=== PATIENT | female | born 1960 | race Caucasian/White ===

== ENCOUNTER 2019-07-30 13:43 | Emergency (ER) | payer BC, MEDICARE ==
[2019-07-30] MEDS ORDERED: TORAdol 30 mg Injection IM ONE (14:02)
--- NOTE | 2019-07-30 14:06 | ERPHSYRPT ---
- History of Present Illness Time Seen by Provider: 07/30/19 13:50 Source: patient Exam Limitations: no limitations Physician History: Left sided pain from the left shoulder, left elbow, left leg and left knee pain after fall in the closet 4 hours ago. Occurred: this morning (4 hours ago) Reason for Fall: lost balance, fell from standing pos Injuries/Pain Location: upper extremity (left shoulder), back, lower extremity ( left side) Loss of Consciousness: no loss of consciousness Quality: aching, sharpness, throbbing Severity of Pain-Max: severe Severity of Pain-Current: severe Modifying Factors: Improves With: immobilization. Worsens With: movement Associated Symptoms (Fall): extremity injury, trouble walking, No abdominal pain , No back pain, No confusion, No chest pain, No dizziness, No headache, No lightheadedness, No muscle spasms, No nausea, No neck pain, No ringing in ears, No seizures, No shortness of breath, No slurred speech, No vomiting, No vision changes Allergies/Adverse Reactions: levofloxacin [From Levaquin] Allergy (Severe, Verified 07/30/19 14:04) itch morphine Allergy (Severe, Verified 02/09/19 16:13) Itching nalbuphine HCl [From Nubain] Allergy (Severe, Verified 02/09/19 16:13) Itching piperacillin [From Zosyn] Allergy (Intermediate, Verified 02/09/19 16:13) Hives tazobactam [From Zosyn] Allergy (Intermediate, Verified 02/09/19 16:13) Hives metformin Allergy (Verified 02/09/19 16:13) Home Medications: Albuterol Sulfate [Proair Hfa] 8.5 gm IH BID 02/09/19 [History] Armodafinil 250 mg PO DAILY 02/09/19 [History] Calcium Citrate/Vitamin D3 [Calcitrate + Vit D Caplet] 1 each PO BID 02/09/19 [ History] Cyanocobalamin (Vitamin B-12) [B-12] 1 ml SQ WEEKLY 02/09/19 [History] Diclofenac Sodium Gel [Voltaren GEL] 100 gm TP UD 02/09/19 [History] Diphenoxylate HCl/Atropine [Lomotil] 1 udtab PO QID PRN 02/09/19 [History] Ergocalciferol (Vitamin D2) [Vitamin D] 50,000 unit PO UD 02/09/19 [History] Esomeprazole Magnesium [Nexium] 40 mg PO BID 02/09/19 [History] Estradiol 1 mg [Estrace 1 mg] 0.5 mg PO UD 02/09/19 [History] Eszopiclone [Lunesta] 1 mg PO HS 02/09/19 [History] Gabapentin Enacarbil [Horizant] 1,200 mg PO HS 02/09/19 [History] Insulin Lispro [Humalog] 100 unit SQ UD 02/09/19 [History] L.acidoph,Paracasei, B.lactis [Probiotic] 1 each PO TID 02/09/19 [History] Levothyroxine Sodium 200 mcg PO DAILY 02/09/19 [History] Levothyroxine Sodium 25 Mcg [Synthroid 25 Mcg] 25 mcg PO DAILY 02/09/19 [ History] Loratadine 10 mg [Claritin 10 mg] 10 mg PO DAILY 02/09/19 [History] Magnesium Oxide 400 mg [Mag-Ox 400] 400 mg PO BID 02/09/19 [History] Midodrine HCl 2.5 mg PO BID 02/09/19 [History] Mirabegron [Myrbetriq] 50 mg PO DAILY 02/09/19 [History] Oxycodone HCl [Oxycontin] 15 mg PO BID 02/09/19 [History] Potassium Chloride 10 Meq Tab* [Klor Con 10 MEQ] 10 meq PO BID 02/09/19 [ History] Rifaximin [Xifaxan] 550 mg PO BID 02/09/19 [History] Sertraline HCl 150 mg PO HS 02/09/19 [History] Sucralfate [Carafate] 1 gm PO BID 02/09/19 [History] Sumatriptan Succinate 25 mg PO BID PRN 02/09/19 [History] Trospium Chloride [Sanctura] 20 mg PO HS 02/09/19 [History] Estradiol 10 mcg VG UD 02/10/19 [History] Pentosan Polysulfate Sodium [Elmiron] 100 mg PO TID 07/27/19 [History] Vitamin D3/Vitamin K2 (Mk4) [K2 Plus D3 Tablet] 1 each PO DAILY 07/27/19 [ History] Hx Tetanus, Diphtheria Vaccination/Date Given: Yes Hx Influenza Vaccination/Date Given: Yes Hx Pneumococcal Vaccination/Date Given: No - Review of Systems Constitutional: No Fever, No Chills, No Fatigue Eyes: No Eye Pain, No Vision Changes Ears, Nose, & Throat: No Ear Pain, No Nose Pain, No Epistaxis Respiratory: No Cough, No Dyspnea Cardiac: No Chest Pain, No Edema, No Syncope Abdominal/Gastrointestinal: No Abdominal Pain, No Nausea, No Vomiting, No Diarrhea Genitourinary Symptoms: No Dysuria, No Hematuria, No Flank Pain Musculoskeletal: Joint Pain (left knee, site of a replacement), No Back Pain, No Neck Pain Skin: No Rash Neurological: No Dizziness, No Focal Weakness, No Headache, No Parasthesia, No Sensory Changes, No Tremors Psychological: No Symptoms Endocrine: No Symptoms Hematologic/Lymphatic: No Easy Bleeding, No Easy Bruising All Other Systems: Reviewed and Negative - Past Medical History Pertinent Past Medical History: Yes Neurological History: Peripheral Neuropathy ENT History: Glaucoma Cardiac History: No Pertinent History Respiratory History: No Pertinent History Endocrine Medical History: Diabetes Type II, Hypothyroidism Musculoskeletal History: Arthritis GI Medical History: GERD History: No Pertinent History Psycho-Social History: Anxiety Female Reproductive Disorders: Menstrual Problems Other Medical History: hx of cyst on ovaries prior to hysterectomy - Past Surgical History Past Surgical History: Yes Neuro Surgical History: No Pertinent History Cardiac: No Pertinent History Respiratory: No Pertinent History Gastrointestinal: Cholecystectomy, Other Genitourinary: No Pertinent History Musculoskeletal: Joint Replacement, Orthopedic Surgery Female Surgical History: Hysterectomy Other Surgical History: lt fx ankle repair,carpel tunnel, d&c, gastric bypass, tummy tuck, bilateral knees replaceed, left elbow - Social History Smoking Status: Never smoker Exposure to second hand smoke: No Alcohol Use: None Drug Use: none Patient Lives Alone: No Significant Family History: heart disease, diabetes, hypertension - Nursing Vital Signs Nursing Vital Signs: Initial Vital Signs Temperature 100.4 F 07/30/19 13:54 Pulse Rate 85 07/30/19 13:54 Respiratory Rate 20 07/30/19 13:54 Blood Pressure 110/69 07/30/19 13:54 O2 Sat by Pulse Oximetry 97 07/30/19 13:54 Pain Scale Pain Intensity 10 - Vernell Coma Score Best Eye Response ([place]): (4) open spontaneously Best Verbal Response ([place]): (5) oriented Best Motor Response ([place]): (6) obeys commands [place] Total: 15 - Physical Exam General Appearance: no apparent distress, alert Head Injury: no evidence of injury, No Diaz's Sign, No contusions, No lacerations Eye Exam: PERRL/EOMI ENT Exam: airway nml, evidence of ENT injury, hearing grossly normal, No clotted nasal blood Neck Exam: supple, trachea midline, full range of motion, normal alignment, normal inspection, No focal neuro deficit, No limited range of motion, No tenderness Respiratory/Chest Exam: normal breath sounds, No chest tenderness, No respiratory distress, No rales, No rhonchi, No wheezing, No splinting Cardiovascular Exam: normal heart sounds, regular rate/rhythm Gastrointestinal Exam: soft, No tenderness, No distention, No guarding, No ecchymosis, No pulsatile mass, No rebound Back Exam: normal inspection, No CVA tenderness, No vertebral tenderness Extremity Exam: normal inspection, normal range of motion, capillary refill <3 sec, pelvis stable, bony point tenderness (left shoulder, elbow; left hip and knee; left lower leg), hip tenderness (left side only), pain with movement ( left hip and knee; left shoulder and elbow), No deformities, No motor deficit, No sensory deficit Peripheral Pulses: dorsalis-pedis (R): 2+, dorsalis-pedis (L): 2+ Neurologic Exam: alert, oriented x 3, cooperative, trauma counsellor II-XII nml as tested, sensation nml, No motor deficits Skin Exam: normal color, warm, dry SpO2 Interpretation: normal O2 Delivery: Room Air - Radiology Exams Left Shoulder X-ray Interpretation: Reviewed by me, No Fracture, Nml Alignment, Other (per radiologist's interpretation:review the left shoulder again demonstrates moderate degenerative arthropathy and mild multilevel thoracic degenerative spondylosis. No new/acute findings) Left Elbow X-ray Interpretation: Reviewed by me, Other (per radiologist interpretation: 3 views of the left elbow unchanged again demonstrating tiny medial/lateral epicondyles spurring and tiny heterotopic ossification projecting over the radial capitellum articulation. No new/acute findings.) L-Spine X-ray Interpretation: Reviewed by Oly croft (per radiologist interpretation: 3 views the lumbar spine unchanged again demonstrating mild 4/moderate multilevel degenerative spondylosis, minimal grade 1 L4 spondylolisthesis, mild curvature scoliosis, bilateral hip degenerative arthropathy, and pelvic phleboliths. No new/acute findings.) Left Hip X-ray Interpretation: Reviewed by Oly croft (pper radiologist interpretation: 2 views of left hip again demonstrates mild degenerative changes with superior acetabular heterotopic ossification and scattered vascular calcifications including pelvic phleboliths. No new/acute findings.) Left Knee X-ray Interpretation: Reviewed by Oly croft (per radiologist interpretation: 3 views of the left knee unchanged again hamstring total knee arthroplasty with an intact prosthesis/articulation and surrounding heterotopic ossification. Also scattered vascular calcifications. No new/acute findings.) Left Lower Leg X-ray Interpretation: Reviewed by Oly croft (per the radiologist's interpretation: 2 views of the left lower leg again demonstrates total knee arthroplasty and scattered vascular calcifications. New Heel spurs. No other bony, articular, or soft tissue abnormality. ) Ordered Tests: Active Orders 24 hr Category Date Time Status ELBOW (MINIMUM 3 VIEWS) Stat Exams 07/30/19 14:19 Completed HIP UNI (2V) INCL PEL IF DONE Stat Exams 07/30/19 14:03 Completed KNEE (3 VIEWS) Stat Exams 07/30/19 14:04 Completed LOWER LEG Stat Exams 07/30/19 14:05 Completed LUMBAR LIMITED (2 OR 3 VIEWS) Stat Exams 07/30/19 14:03 Completed SHOULDER Stat Exams 07/30/19 14:03 Completed Medication Summary Discontinued Medications Generic Name Dose Route Start Last Admin Trade Name Freq PRN Reason Stop Dose Admin Ketorolac Tromethamine 60 mg 07/30/19 14:02 07/30/19 14:16 Toradol 30 Mg Injection IM 07/30/19 14:03 60 mg STAT ONE Administration Ketorolac Tromethamine Confirm 07/30/19 14:15 Toradol 30 Mg Injection Administered 07/30/19 14:16 Dose 60 mg .ROUTE .STK-MED ONE - Progress Progress: improved Progress Note: 07/30/19 15:54 Pain is improving. No neurologic deficits. Counseled pt/family regarding: diagnosis, need for follow-up, rad results - Departure Departure Disposition: Home, In-patient Admission, Extended Care Facility, Group Home/ [facility] Clinical Impression: Contusion of left elbow, initial encounter, Pain in left lower leg Sprain of left shoulder Qualifiers: Encounter type: initial encounter Shoulder sprain type: unspecified sprain Qualified Code(s): S43.402A - Unspecified sprain of left shoulder joint, initial encounter Contusion of left hip Qualifiers: Encounter type: initial encounter Qualified Code(s): S70.02XA - Contusion of left hip, initial encounter Lumbosacral strain Qualifiers: Encounter type: initial encounter Qualified Code(s): S39.012A - Strain of muscle, fascia and tendon of lower back, initial encounter Condition: Good Critical Care Time: No Referrals: ESEQUIEL MTZ MD [Primary Care Provider] - 07/31/19 Instructions: Lumbar Muscle Strain (DC), Contusion (DC), Preventing Falls, Shoulder Sprain (DC), Knee Pain (DC) Additional Instructions: Your x-rays of your left shoulder, left elbow, low back, left hip, left knee, and left lower leg were negative for any acute fractures, dislocations or any new abnormalities. Followup with your physician to continue evaluating her pain and determine the need for referral for therapy or other further imaging or any other specialist evaluation such as an orthopedic surgeon. Return immediately back to the emergency room if any worsening pain, loss of function, loss of sensation, new fevers, new abdominal pain, any dizziness, new weakness or any other concerning signs or symptoms that were not present at today's emergency department visit for immediate reevaluation in the emergency department. Prescriptions: Etodolac 400 mg [Lodine 400 mg] 400 mg PO BID PRN PRN #20 tablet PRN Reason: Pain
[2019-07-30] MEDS ORDERED: TORAdol 30 mg Injection ONE (14:15)
--- NOTE | 2019-07-30 15:19 | XRAY ---
Indication: Pain following fall. Comparison: August 19, 2013. 3 views of the lumbar spine unchanged again demonstrating mild/moderate multilevel degenerative spondylosis, minimal grade 1 L4 spondylolisthesis, mild double curvature scoliosis, bilateral hip degenerative arthropathy, and pelvic phleboliths. No new/acute findings.
--- NOTE | 2019-07-30 15:21 | XRAY ---
Indication: Pain following fall. Comparison: AP pelvis November 23, 2011. 2 views of the left hip again demonstrates mild degenerative changes with superior acetabular heterotopic ossification and scattered vascular calcifications including pelvic phleboliths. No new/acute findings.
--- NOTE | 2019-07-30 15:23 | XRAY ---
Indication: Pain following fall. Comparison: December 24, 2007. 3 views of the left shoulder again demonstrates moderate AC degenerative arthropathy and mild multilevel thoracic degenerative spondylosis. No new/acute findings.
--- NOTE | 2019-07-30 15:25 | XRAY ---
Indication: Pain following fall. Comparison: April 21, 2015. 3 views of the left elbow unchanged again demonstrating tiny medial/lateral epicondyle spurring and tiny heterotopic ossification projecting over the radial capitellum articulation. No new/acute findings.
--- NOTE | 2019-07-30 15:27 | XRAY ---
Indication: Pain following fall. Comparison: December 18, 2016. 3 views of the of the left knee unchanged again demonstrating total knee arthroplasty with intact prosthesis/articulation and surrounding heterotopic ossifications. Also scattered vascular calcifications. No new/acute findings.
--- NOTE | 2019-07-30 15:29 | XRAY ---
Indication: Pain following fall. Comparison: August 16, 2014. 2 views of the left lower leg again demonstrates total knee arthroplasty and scattered vascular calcifications. New heel spurs. No other bony, articular, or soft tissue abnormality.
[2019-07-30 16:25] VITALS: BP 112/74; PULSE 84; O2SAT 94
== END 2019-07-30 16:23 | disposition home or self-care (01) ==
LOC: ED 13:43
DX: S50.02XA Contusion of left elbow, initial encounter (principal); S80.12XA Contusion of left lower leg, initial encounter; S70.02XA Contusion of left hip, initial encounter; W18.39XA Other fall on same level, initial encounter; S43.402A Unspecified sprain of left shoulder joint, initial encounter; S39.012A Strain of muscle, fascia and tendon of lower back, initial encounter; Z79.899 Other long term (current) drug therapy; Z79.891 Long term (current) use of opiate analgesic; Z79.4 Long term (current) use of insulin; E03.9 Hypothyroidism, unspecified; E00.9 Congenital iodine-deficiency syndrome, unspecified; H40.9 Unspecified glaucoma
CPT/HCPCS: 72100; 73030; 73080; 73502; 73562; 73590; 96372; 99284; J1885

== ENCOUNTER 2021-05-20 20:01 | Emergency (ER) | payer OTHER, MEDICARE ==
--- NOTE | 2021-05-20 20:06 | ERPHSYRPT ---
- History of Present Illness Time Seen by Provider: 05/20/21 20:06 Source: patient Exam Limitations: no limitations Physician History: This is a 60-year-old white female who has had a right upper extremity midline venous catheter for once a week and meropenem antibiotic therapy. She was discharged from the hospital approximately 1 month ago. However, approximately 2 weeks ago the venous catheter was accidentally pulled out a ways. It has not been used since that time. The patient wants the line out since its not being used. Her next infusion of meropenem is 05/23/2021. Patient has noticed no redness or pain in the right upper extremity venous catheter site. Timing/Duration: today Severity: mild Associated Symptoms: denies symptoms Allergies/Adverse Reactions: levofloxacin [From Levaquin] Allergy (Severe, Verified 05/09/21 11:05) itch morphine Allergy (Severe, Verified 05/09/21 11:05) Itching nalbuphine HCl [From Nubain] Allergy (Severe, Verified 05/09/21 11:05) Itching piperacillin [From Zosyn] Allergy (Intermediate, Verified 05/09/21 11:05) Hives tazobactam [From Zosyn] Allergy (Intermediate, Verified 05/09/21 11:05) Hives metformin Allergy (Verified 05/09/21 11:05) Home Medications: Ergocalciferol (Vitamin D2) [Vitamin D] 50,000 unit PO UD 02/09/19 [History] Magnesium Oxide 400 mg [Mag-Ox 400] 400 mg PO DAILY 02/09/19 [History] Mirabegron [Myrbetriq] 50 mg PO DAILY 02/09/19 [History] Oxycodone HCl [Oxycontin] 10 mg PO BID 02/09/19 [History] Potassium Chloride 10 Meq Tab* [Klor Con 10 MEQ] 10 meq PO BID 02/09/19 [History] estradioL [Estradiol] 10 mcg VG UD 02/10/19 [History] Ascorbic Acid 500 mg [Vitamin C 500 MG] 500 mg PO DAILY 05/16/21 [History] Azelastine Nasal [Astelin Nasal] 1 ml INTRANASAL BID 05/16/21 [History] Buprenorphine HCl [Belbuca] 600 mcg BC BID 05/16/21 [History] Diclofenac Sodium Gel [Voltaren GEL] 100 gm TP QID PRN PRN 05/16/21 [History] Escitalopram Oxalate [Lexapro] 20 mg PO DAILY 05/16/21 [History] Gabapentin Enacarbil [Horizant] 600 mg PO DAILY 05/16/21 [History] Loperamide HCl 2 mg [Imodium 2 mg] 2 mg PO QID PRN PRN 05/16/21 [History] Ondansetron ODT 4 MG [Zofran Odt 4 mg] 4 mg PO Q6H PRN PRN 05/16/21 [History] Pramipexole Di-HCl [Pramipexole Dihydrochloride] 0.125 mg PO BID 05/16/21 [History] Pramipexole Di-HCl [Pramipexole ER] 0.375 mg PO HS 05/16/21 [History] Hx Tetanus, Diphtheria Vaccination/Date Given: Yes Hx Influenza Vaccination/Date Given: Yes Hx Pneumococcal Vaccination/Date Given: No Travel Risk - International Travel Have you traveled outside of the country in past 3 weeks: No - Coronavirus Screening Are you exhibiting any of the following symptoms?: No Close contact with a COVID-19 positive Pt in past 14-21 Days: No - Review of Systems Constitutional: No Symptoms Eyes: No Symptoms Ears, Nose, & Throat: No Symptoms Respiratory: No Symptoms Cardiac: No Symptoms Abdominal/Gastrointestinal: No Symptoms Genitourinary Symptoms: No Symptoms Musculoskeletal: No Symptoms Skin: No Symptoms Neurological: No Symptoms Psychological: No Symptoms Endocrine: No Symptoms Hematologic/Lymphatic: No Symptoms Immunological/Allergic: No Symptoms All Other Systems: Reviewed and Negative - Past Medical History Pertinent Past Medical History: Yes Neurological History: Peripheral Neuropathy ENT History: Glaucoma Cardiac History: No Pertinent History Respiratory History: No Pertinent History Endocrine Medical History: Adrenal Insufficiency, Diabetes Type II, Other Musculoskeletal History: Osteoarthritis GI Medical History: GERD History: Other Psycho-Social History: Anxiety Female Reproductive Disorders: Menstrual Problems Other Medical History: PT NOTES SHE WAS IN THE HOSPITAL FOR 100+ DUE TO FOOD RETENTION, SHE NOTES PUSHING THE FOOD THROUGH DAMAGED HER GASTRIC BYPASS. SHE HAD TO HAVE ADDITIONAL SURGERIES. SHE RECENTLY FINISHED WOUND CARE. SHE HAD A WOUND VAC IN THE HOSPTIAL. SHE NOTES WOUND IS ALL HEALED . SHE HAS HAD PARTIAL LIVER REMOVAL. PT HAS HAD HER STOMACH REMOVED. recurrent urinary tract infections - Past Surgical History Past Surgical History: Yes Neuro Surgical History: No Pertinent History Cardiac: No Pertinent History Respiratory: No Pertinent History Gastrointestinal: Cholecystectomy, Other Genitourinary: No Pertinent History Musculoskeletal: Joint Replacement, Orthopedic Surgery Female Surgical History: Hysterectomy Other Surgical History: lt fx ankle repair,carpel tunnel, d&c, gastric bypass, tummy tuck, bilateral knees replaceed, left elbow. glaucoma surgery on both eyes. 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 - Social History Smoking Status: Never smoker Exposure to second hand smoke: No Alcohol Use: None Drug Use: none Patient Lives Alone: No Significant Family History: heart disease, diabetes, hypertension - Nursing Vital Signs Nursing Vital Signs: Initial Vital Signs Temperature 98.9 F 05/20/21 20:03 Pulse Rate 74 05/20/21 20:03 Respiratory Rate 18 05/20/21 20:03 Blood Pressure 144/73 05/20/21 20:03 O2 Sat by Pulse Oximetry 98 05/20/21 20:03 Pain Scale Pain Intensity 1 - Physical Exam General Appearance: no apparent distress, alert, anxiety Eye Exam: PERRL/EOMI, eyes nml inspection Ears, Nose, Throat Exam: normal ENT inspection, moist mucous membranes Neck Exam: normal inspection, non-tender, supple, full range of motion Respiratory Exam: No chest tenderness, No respiratory distress, No airway intact Gastrointestinal/Abdomen Exam: No tenderness Pelvic Exam: not done Rectal Exam: not done Back Exam: normal inspection, normal range of motion, No CVA tenderness, No vertebral tenderness Extremity Exam: normal inspection, normal range of motion, pelvis stable Neurologic Exam: alert, oriented x 3, cooperative, superintendent drilling and production II-XII nml as tested, normal mood/affect, nml cerebellar function, nml station & gait, sensation nml Skin Exam: normal color, warm, dry, other (Right antecubital catheter site shows no evidence of infection or drainage. The venous catheter line has been pulled out significantly.) Lymphatic Exam: No adenopathy SpO2 Interpretation: normal O2 Delivery: Room Air - Course Nursing assessment & vital signs reviewed: Yes - Progress Progress: improved Counseled pt/family regarding: diagnosis - Departure Departure Disposition: Home Clinical Impression: PICC (peripherally inserted central catheter) removal Condition: Stable Critical Care Time: No Referrals: ESEQUIEL MTZ MD [Primary Care Provider] - Additional Instructions: Keep site clean with soap and water daily. Do not apply lotions ointments or creams to site. Notify infusion clinic on 05/22/2021 to obtain further instructions
[2021-05-20 20:38] VITALS: PULSE 74; O2SAT 98
[2021-05-20 21:04] VITALS: BP 124/64
== END 2021-05-20 21:04 | disposition home or self-care (01) ==
LOC: ED 20:01
DX: Z45.2 Encounter for adjustment and management of vascular access device (principal); E11.9 Type 2 diabetes mellitus without complications
CPT/HCPCS: 99283

== ENCOUNTER 2023-04-18 12:56 | Emergency (ER) | payer MEDICARE, BC ==
[2023-04-18 13:07] VITALS: BP 139/89; PULSE 70; O2SAT 96
[2023-04-18] MEDS ORDERED: BENADRYL 50 MG/ML IM ONE (13:34)
[2023-04-18] MEDS ORDERED: solu-MEDROL 125 MG, Sterile H2O 10 ml 2 ML IM ONE ×2 (13:34)
[2023-04-18] MEDS ORDERED: Pepcid 20 MG PO ONE (13:34)
[2023-04-18] MEDS ORDERED: Sterile H2O 10 ml IJ ONE (13:43)
[2023-04-18] MEDS ORDERED: BENADRYL 50 MG/ML ONE (13:43)
[2023-04-18] MEDS ORDERED: Pepcid 20 MG ONE (13:43)
[2023-04-18] MEDS ORDERED: solu-MEDROL ONE (13:43)
--- NOTE | 2023-04-18 14:16 | ERPHSYRPT ---
- History of Present Illness Time Seen by Provider: 04/18/23 13:04 Source: patient Exam Limitations: no limitations Patient Subjective Stated Complaint: pt here for welts and itching for an 1 1/2 now, no new meds. denies any sob, or dificulty swallowing Triage Nursing Assessment: pt alert, resp easy, skin w/d/p,itching, skin w/d/p, has raised areas on skin Physician History: 62 years old female presented to the ER with chief complaint of rash on the back, legs since yesterday with moderate itching and burning sensation. There are scattered in different areas. No vesicles. No fever or chills reported. No difficulty breathing or swallowing. No tongue swelling. Timing/Duration: yesterday, gradual onset, worse Quality: itchy Severity: moderate Location: torso, extremities Possible Causes: no cause identified Associated Symptoms: rash Allergies/Adverse Reactions: levofloxacin [From Levaquin] Allergy (Severe, Verified 04/18/23 13:04) itch morphine Allergy (Severe, Verified 04/18/23 13:04) Itching nalbuphine HCl [From Nubain] Allergy (Severe, Verified 04/18/23 13:04) Itching piperacillin [From Zosyn] Allergy (Intermediate, Verified 04/18/23 13:04) Hives tazobactam [From Zosyn] Allergy (Intermediate, Verified 04/18/23 13:04) Hives metformin Allergy (Verified 04/18/23 13:04) Home Medications: Ergocalciferol (Vitamin D2) [Vitamin D] 50,000 unit PO UD 02/09/19 [History] Magnesium Oxide 400 mg [Mag-Ox 400] 400 mg PO DAILY 02/09/19 [History] Mirabegron [Myrbetriq] 50 mg PO DAILY 02/09/19 [History] Oxycodone HCl [Oxycontin] 10 mg PO BID 02/09/19 [History] Potassium Chloride Tab* [Klor Con 10 MEQ] 10 meq PO BID 02/09/19 [History] estradioL [Estradiol] 10 mcg VG UD 02/10/19 [History] Ascorbic Acid 500 mg [Vitamin C 500 MG] 500 mg PO DAILY 05/16/21 [History] Azelastine Nasal [Astelin Nasal] 1 ml INTRANASAL BID 05/16/21 [History] Buprenorphine HCl [Belbuca] 600 mcg BC BID 05/16/21 [History] Diclofenac Sodium Gel [Voltaren GEL] 100 gm TP QID PRN PRN 05/16/21 [ History] Escitalopram Oxalate [Lexapro] 20 mg PO DAILY 05/16/21 [History] Gabapentin Enacarbil [Horizant] 600 mg PO DAILY 05/16/21 [History] Loperamide HCl 2 mg [Imodium 2 mg] 2 mg PO QID PRN PRN 05/16/21 [History] Ondansetron ODT 4 MG [Zofran Odt 4 mg] 4 mg PO Q6H PRN PRN 05/16/21 [History] Pramipexole Di-HCl [Pramipexole Dihydrochloride] 0.125 mg PO BID 05/16/21 [History] Pramipexole Di-HCl [Pramipexole ER] 0.375 mg PO HS 05/16/21 [History] Hx Tetanus, Diphtheria Vaccination/Date Given: Yes Hx Influenza Vaccination/Date Given: Yes Hx Pneumococcal Vaccination/Date Given: No Immunizations Up to Date: Yes Travel Risk - International Travel Have you traveled outside of the country in past 3 weeks: No - Coronavirus Screening Are you exhibiting any of the following symptoms?: No - Vaccine Status Have you recieved a Covid-19 vaccination: Yes [employer] [place]: Moderna - Vaccination Dates Date of 2cond Vaccination (if applicable): 2020 - Review of Systems Constitutional: No Symptoms Eyes: No Symptoms Ears, Nose, & Throat: No Symptoms Respiratory: No Symptoms Cardiac: No Symptoms Musculoskeletal: No Symptoms Skin: Rash, Skin Lesions Neurological: No Symptoms Psychological: No Symptoms - Past Medical History Pertinent Past Medical History: Yes Neurological History: Peripheral Neuropathy ENT History: Glaucoma Cardiac History: No Pertinent History Respiratory History: No Pertinent History Endocrine Medical History: Adrenal Insufficiency, Diabetes Type II, Other Musculoskeletal History: Osteoarthritis GI Medical History: GERD History: Other Psycho-Social History: Anxiety Female Reproductive Disorders: Menstrual Problems Other Medical History: PT NOTES SHE WAS IN THE HOSPITAL FOR 100+ DUE TO FOOD RETENTION, SHE NOTES PUSHING THE FOOD THROUGH DAMAGED HER GASTRIC BYPASS. SHE HAD TO HAVE ADDITIONAL SURGERIES. SHE RECENTLY FINISHED WOUND CARE. SHE HAD A WOUND VAC IN THE HOSPTIAL. SHE NOTES WOUND IS ALL HEALED . SHE HAS HAD PARTIAL LIVER REMOVAL. PT HAS HAD HER STOMACH REMOVED. recurrent urinary tract infections - Past Surgical History Past Surgical History: Yes Neuro Surgical History: No Pertinent History Cardiac: No Pertinent History Respiratory: No Pertinent History Gastrointestinal: Cholecystectomy, Other Genitourinary: No Pertinent History Musculoskeletal: Joint Replacement, Orthopedic Surgery Female Surgical History: Hysterectomy Other Surgical History: lt fx ankle repair,carpel tunnel, d&c, gastric bypass, tummy tuck, bilateral knees replaceed, left elbow. glaucoma surgery on both eyes. 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 - Social History Smoking Status: Never smoker Exposure to second hand smoke: No Alcohol Use: None Drug Use: none Patient Lives Alone: No Significant Family History: heart disease, diabetes, hypertension - Nursing Vital Signs Nursing Vital Signs: Initial Vital Signs Temperature 97.0 F 04/18/23 13:06 Pulse Rate 70 04/18/23 13:06 Respiratory Rate 18 04/18/23 13:06 Blood Pressure 139/89 04/18/23 13:06 O2 Sat by Pulse Oximetry 97 04/18/23 13:06 Pain Scale Pain Intensity 0 - Physical Exam General Appearance: no apparent distress, alert Eye Exam: PERRL/EOMI Ears, Nose, Throat Exam: normal ENT inspection, TMs normal, pharynx normal, moist mucous membranes Neck Exam: normal inspection, non-tender, supple, full range of motion Respiratory Exam: normal breath sounds, lungs clear Cardiovascular Exam: regular rate/rhythm, normal heart sounds Back Exam: normal inspection Extremity Exam: normal inspection, normal range of motion Neurologic Exam: alert, oriented x 3, cooperative Skin Exam: rash (Distinct raised rash on the back, thighs, no vesicles, blanchable, minimal tenderness. No discharge.) SpO2 Interpretation: normal SpO2: 96 O2 Delivery: Room Air Ordered Tests: Medication Summary Discontinued Medications Generic Name Dose Route Start Last Admin Trade Name Freq PRN Reason Stop Dose Admin Methylprednisolone Sodium 0 mg 04/18/23 13:34 04/18/23 13:45 Succinate 125 mg/ Sterile IM 04/18/23 13:35 125 mg Water 2 ml STAT ONE Administration Diphenhydramine HCl 50 mg 04/18/23 13:34 04/18/23 13:46 Diphenhydramine Hcl 50 Mg/Ml Vial IM 04/18/23 13:35 50 mg STAT ONE Administration Diphenhydramine HCl Confirm 04/18/23 13:43 Diphenhydramine Hcl 50 Mg/Ml Vial Administered 04/18/23 13:44 Dose 50 mg .ROUTE .STK-MED ONE Famotidine 40 mg 04/18/23 13:34 04/18/23 13:44 Famotidine 20 Mg Tablet PO 04/18/23 13:35 40 mg STAT ONE Administration Famotidine Confirm 04/18/23 13:43 Famotidine 20 Mg Tablet Administered 04/18/23 13:44 Dose 40 mg .ROUTE .STK-MED ONE Methylprednisolone Sodium Succinate Confirm 04/18/23 13:43 Methylprednis Sod Succ 125 Mg/2 Ml Vial Administered 04/18/23 13:44 Dose 125 mg .ROUTE .STK-MED ONE Sterile Water Confirm 04/18/23 13:43 Water For Injection,Sterile 10 Ml Vial Administered 04/18/23 13:44 Dose 10 ml IJ .STK-MED ONE - Progress Progress Note: 04/18/23 14:11 62 years old female presented to the ER with chief complaint of rash on the back, legs since yesterday with moderate itching and burning sensation. There are scattered in different areas. No vesicles. No fever or chills reported. No difficulty breathing or swallowing. No tongue swelling. Denies any new medication start, contact with any new allergen. On exam it seems like distant areas with questionable bite leung in the center. Could be possible insect bite versus dermatitis. She is given a shot of steroid, Benadryl and will continue with Benadryl and Pepcid to go home and topical steroid. Counseled on glucose monitoring because of the steroids. No signs symptoms of airway compromise. Recommended outpatient follow-up. Discussed signs symptoms of worsening needing return to ER which she seems understanding. Stable for discharge. Counseled pt/family regarding: diagnosis, need for follow-up - Departure Departure Disposition: Home Clinical Impression: Dermatitis Condition: Stable Critical Care Time: No Referrals: ESEQUIEL MTZ MD [Primary Care Provider] - Follow up with PCP 1 day Instructions: Poison [place], Poison [place], Poison [place] ([place]) Additional Instructions: Follow-up with primary care for reevaluation. Return to ER for worsening rash, itching, difficulty breathing/swallowing/tongue swelling etc. do not apply steroids on the face. Monitor your blood sugar regularly for the next few days to a week. Prescriptions: Diphenhydramine HCl 25 mg [Benadryl 25 mg Capsule] 25 mg PO Q4H PRN PRN #20 cap PRN Reason: Allergies Betamethasone/Propylene Glyc [Betamethasone Dp Aug 0.05% Crm] 15 gm TP TID 7 Days #1 tu Famotidine 20 mg [Pepcid 20 MG] 20 mg PO BID #10 tablet
== END 2023-04-18 14:32 | disposition home or self-care (01) ==
LOC: ED 12:56
DX: L30.9 Dermatitis, unspecified (principal); E11.42 Type 2 diabetes mellitus with diabetic polyneuropathy; Z79.891 Long term (current) use of opiate analgesic; Z79.899 Other long term (current) drug therapy
CPT/HCPCS: 96372; 99283; J1200; J2930; A9270-GY

== ENCOUNTER 2023-09-12 19:50 | Emergency (ER) | payer BC, MEDICARE ==
[2023-09-12 19:59] VITALS: TEMP 97.1
[2023-09-12] MEDS ORDERED: Sodium Chloride 0.9% 1000 ML 1,000 ML IV SCH (20:00)
[2023-09-12 20:30] LABS: Absolute Neutrophil Ct (ANC) 1.02 x10^3/uL (1.4-6.9); BASOPHIL % 0.2 % (0.0-0.4); Basophil (Absolute #) 0.01 x10^3/uL (0-0.4); Eosinophil % 1.2 % (0.00-5.0); Eosinophil (Absolute #) 0.05 x10^3/uL (0-0.5); Hematocrit 35.7 % (35-47); Hemoglobin 11.3 g/dL (12.0-16.0); IMMATURE GRAN # 0.01 x10^3u/L (0.00-0.03); IMMATURE GRAN % 0.2 % (0.00-0.4); Lymphocyte (Absolute #) 2.79 x10^3/uL (1.0-4.6); Lymphocytes % 67.4 % (24.0-44.0); Mean Cell Volume 94.7 fL (78-100); Mean Corpuscular Hgb Concent. 31.7 g/dL (32-36); Mean Platelet Volume 11.5 fL (7.5-11.0); Monocyte (Absolute #) 0.26 x10^3/uL (0.0-1.3); Monocytes % 6.3 % (0.0-12.0); Neutrophil % 24.7 % (36.0-66.0); Platelet Count 116 x10^3/uL (150-450); Red Blood Count 3.77 x10^6/uL (4.1-5.4); Red Cell Distribution Width 13.4 % (11.5-14.0); White Blood Count 4.1 x10^3/uL (4.0-10.5)
[2023-09-12] MEDS ORDERED: Sodium Chloride 0.9% 1000 ML 1,000 ML ONE (20:32)
[2023-09-12 20:46] LABS: ALBUMIN 4.3 g/dL (3.5-5.0); ANION GAP 14.8 MEQ/L (5-15); BILIRUBIN,TOTAL 0.4 mg/dL (0.2-1.3); Calcium 8.8 mg/dL (8.4-10.2); Creatinine 1 1.25 mg/dL (0.52-1.04); EST GLOMERULAR FILTRATION RATE 48.1 ML/MIN; Potassium 4.1 mmol/L (3.5-5.1); Total Protein 7.6 g/dL (6.3-8.2)
[2023-09-12 21:04] LABS: INFLUENZA A NEGATIVE (NEGATIVE); INFLUENZA B NEGATIVE (NEGATIVE); RESPIRATORY SYNCTIAL VIRUS NEGATIVE (NEGATIVE); SARS-CoV-2 Xpert Express NEGATIVE (NEGATIVE)
[2023-09-12 21:09] VITALS: RESP 18
[2023-09-12 21:44] LABS: Appearance Cloudy (Clear); Bilirubin Negative (Negative); Blood Trace (Negative); Epithelial Cells Rare /HPF (None Seen); Glucose, Urine 100 mg/dL (Negative); Ketones Trace (Negative); Leukocyte Esterase Small (Negative); Nitrite Negative (Negative); Ph 5.5 (4.6-8.0); Protein,Urine Dip Trace (Negative); Urobilinogen 0.2 mg/dL (0.2)
[2023-09-12 21:45] LABS: ADD URINE CULTURE? YES (NO); Bacteria Rare /HPF (None Seen); Hyaline Casts None Seen /LPF (0-2); RBC 0-2 /HPF (0-5)
--- NOTE | 2023-09-12 22:17 | ERPHSYRPT ---
- History of Present Illness Time Seen by Provider: 09/12/23 20:00 Source: patient, family Exam Limitations: no limitations Patient Subjective Stated Complaint: dizziness, "my head feels like it's swimming", seeing double when driving Triage Nursing Assessment: pt ambulated into ER slightly wobbly, with at bedside. Pt alert and oriented x4, pleasant and cooperative. Pt c/o dizziness which occured today around 11:[address] Jennifer Mtz's office, just for a regular visit. Pt denies any ear pain or discomfort, denies any nausea or vomiting, denies any headache. Physician History: Patient is a 63-year-old white female who saw her doctor today and upon leaving his office became somewhat dizzy said she had some transient double vision she denies any ear pain or tinnitus she says that things are not spinning although she says she is wobbly. Timing/Duration: today Severity: moderate Modifying Factors: Improves With: movement Associated Symptoms: weakness Allergies/Adverse Reactions: levofloxacin [From Levaquin] Allergy (Severe, Verified 09/12/23 20:09) itch morphine Allergy (Severe, Verified 09/12/23 20:09) Itching nalbuphine HCl [From Nubain] Allergy (Severe, Verified 09/12/23 20:09) Itching piperacillin [From Zosyn] Allergy (Intermediate, Verified 09/12/23 20:09) Hives tazobactam [From Zosyn] Allergy (Intermediate, Verified 09/12/23 20:09) Hives metformin Allergy (Verified 09/12/23 20:09) Home Medications: Ergocalciferol (Vitamin D2) [Vitamin D] 50,000 unit PO UD 02/09/19 [History] Mirabegron [Myrbetriq] 50 mg PO DAILY 02/09/19 [History] Oxycodone HCl [Oxycontin] 10 mg PO Q6HPRN PRN 02/09/19 [History] Ascorbic Acid 500 mg [Vitamin C 500 MG] 500 mg PO DAILY 05/16/21 [History] Buprenorphine HCl [Belbuca] 750 mcg BC BID 05/16/21 [History] Escitalopram Oxalate [Lexapro] 20 mg PO DAILY 05/16/21 [History] Loperamide HCl 2 mg [Imodium 2 mg] 2 mg PO TID PRN PRN 05/16/21 [History] Pramipexole Di-HCl [Pramipexole ER] 1 mg PO HS 05/16/21 [History] Albuterol Sulfate [Albuterol Sulfate Hfa] 8.5 gm IH Q4H PRN PRN 09/12/23 [History] Buspirone HCl 5 mg [Buspar 5 mg] 1 tab PO TID PRN PRN 09/12/23 [History] Calcium Cit/Mgox/Vit D3/B6/Min [Calcium Citrate Plus Tablet] 1 each PO BID 09/12/23 [History] Cyanocobalamin 1000 Mcg/ml [Cyanocobalamin B-12 1000 MCG/ML] 1 ml SQ WEEKLY 09/12/23 [History] Estradiol [Estrace] 2 tab PO DAILY 09/12/23 [History] Eszopiclone [Lunesta] 2 mg PO HS 09/12/23 [History] Fexofenadine HCl 180 mg PO DAILY 09/12/23 [History] Gabapentin Enacarbil [Horizant] 300 mg PO UD 09/12/23 [History] Levothyroxine Sodium 100 Mcg [Synthroid 100 Mcg] 200 mcg PO DAILY 09/12/23 [History] Midodrine HCl 2.5 mg PO TID 09/12/23 [History] Montelukast Sodium 10 mg [Singulair 10 MG] 1 tab PO DAILY 09/12/23 [History] Multivitamin/Iron/Folic Acid [Centrum Women Tablet] 1 tab PO DAILY 09/12/23 [History] Olopatadine HCl [Pataday Twice Daily Relief] 2 drops BID 09/12/23 [History] Propylene Glycol/Peg 400/Pf [Systane Ultra 0.4-0.3% Eye Drp] 1 drop QID 09/12/23 [History] Rifaximin [Xifaxan] 550 mg PO BID 09/12/23 [History] Semaglutide [Ozempic] 8 mg SQ WEEKLY 09/12/23 [History] Solifenacin Succinate 10 mg PO DAILY 09/12/23 [History] Sucralfate 1 gm [Carafate 1 GM] 1 tablet PO DAILY 09/12/23 [History] Tizanidine HCl 4 mg [Zanaflex 4 MG] 1 tab PO HS 09/12/23 [History] Tolterodine Tartrate [Tolterodine Tartrate ER] 2 mg PO HS 09/12/23 [History] Zinc Amino Acid Chelate [Zinc] 50 mg PO DAILY 09/12/23 [History] Hx Tetanus, Diphtheria Vaccination/Date Given: No Hx Influenza Vaccination/Date Given: Yes Hx Pneumococcal Vaccination/Date Given: Yes Immunizations Up to Date: No Travel Risk - International Travel Have you traveled outside of the country in past 3 weeks: No - Coronavirus Screening Are you exhibiting any of the following symptoms?: No Close contact with a COVID-19 positive Pt in past 14-21 Days: No - Vaccine Status Have you recieved a Covid-19 vaccination: Yes [employer] Tender: Moderna - Vaccination Dates Date of 2cond Vaccination (if applicable): . - Review of Systems Constitutional: No Fever, No Chills Eyes: No Symptoms, Double Vision Ears, Nose, & Throat: No Symptoms Respiratory: No Cough, No Dyspnea Cardiac: No Chest Pain, No Edema, No Syncope Abdominal/Gastrointestinal: No Abdominal Pain, No Nausea, No Vomiting, No Diarrhea Genitourinary Symptoms: No Dysuria Musculoskeletal: No Back Pain, No Neck Pain Skin: No Rash Neurological: No Dizziness, No Focal Weakness, No Sensory Changes Psychological: No Symptoms Endocrine: No Symptoms All Other Systems: Reviewed and Negative - Past Medical History Pertinent Past Medical History: Yes Neurological History: Peripheral Neuropathy ENT History: Glaucoma Cardiac History: No Pertinent History Respiratory History: No Pertinent History Endocrine Medical History: Adrenal Insufficiency, Diabetes Type II, Other Musculoskeletal History: Osteoarthritis GI Medical History: GERD, Gallbladder Disease History: Other Psycho-Social History: Anxiety Female Reproductive Disorders: Menstrual Problems Other Medical History: PT NOTES SHE WAS IN THE HOSPITAL FOR 100+ DUE TO FOOD RETENTION, SHE NOTES PUSHING THE FOOD THROUGH DAMAGED HER GASTRIC BYPASS. SHE HAD TO HAVE ADDITIONAL SURGERIES. SHE RECENTLY FINISHED WOUND CARE. SHE HAD A WOUND VAC IN THE HOSPTIAL. SHE NOTES WOUND IS ALL HEALED . SHE HAS HAD PARTIAL LIVER REMOVAL. PT HAS HAD HER STOMACH REMOVED. recurrent urinary tract infections - Past Surgical History Past Surgical History: Yes Neuro Surgical History: No Pertinent History Cardiac: No Pertinent History Respiratory: No Pertinent History Gastrointestinal: Cholecystectomy, Other Genitourinary: No Pertinent History Musculoskeletal: Joint Replacement, Orthopedic Surgery Female Surgical History: Hysterectomy Other Surgical History: lt fx ankle repair,carpel tunnel, d&c, gastric bypass, tummy tuck, bilateral knees replaceed, left elbow. glaucoma surgery on both ey es. 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 - Social History Smoking Status: Never smoker Exposure to second hand smoke: No Alcohol Use: None Drug Use: none Patient Lives Alone: No Significant Family History: heart disease, diabetes, hypertension - Nursing Vital Signs Nursing Vital Signs: Initial Vital Signs Temperature 97.1 F 09/12/23 19:57 Pulse Rate 78 09/12/23 19:57 Respiratory Rate 18 09/12/23 19:57 Blood Pressure 152/71 09/12/23 19:57 O2 Sat by Pulse Oximetry 96 09/12/23 19:57 Pain Scale Pain Intensity 0 - Physical Exam General Appearance: mild distress, alert Eye Exam: PERRL/EOMI, eyes nml inspection Ears, Nose, Throat Exam: normal ENT inspection, TMs normal, pharynx normal, moist mucous membranes Neck Exam: normal inspection, non-tender, supple, full range of motion Respiratory Exam: normal breath sounds, lungs clear, No respiratory distress Cardiovascular Exam: regular rate/rhythm, normal heart sounds, normal peripheral pulses Gastrointestinal/Abdomen Exam: soft, normal bowel sounds, No tenderness, No mass Back Exam: normal inspection, normal range of motion, No CVA tenderness, No vertebral tenderness Extremity Exam: normal inspection, normal range of motion, pelvis stable Neurologic Exam: alert, oriented x 3, cooperative, normal mood/affect, nml cerebellar function, nml station & gait, sensation nml, No motor deficits Skin Exam: normal color, warm, dry, No rash Lymphatic Exam: No adenopathy SpO2: 96 - Course Nursing assessment & vital signs reviewed: Yes EKG Interpreted by Me: RATE (71), Sinus Rhythm, NORMAL AXIS, Right Bundle Branch Block, Non-specific ST Changes - CT Exams Head CT Interpretation: Negative Ordered Tests: Active Orders 24 hr Category Date Time Status EKG-ER Only STAT Care 09/12/23 19:59 Active CHEST 1 VIEW (PORTABLE) Stat Exams 09/12/23 20:33 Taken HEAD WITHOUT CONTRAST [CT] Stat Exams 09/12/23 20:33 Taken CBC W DIFF Stat Lab 09/12/23 20:20 Completed CMP Stat Lab 09/12/23 20:20 Completed CULTURE,URINE Stat Lab 09/12/23 20:56 Received D-DIMER QUANTITATIVE Stat Lab 09/12/23 20:20 Completed Lactic Acid Stat Lab 09/12/23 20:29 Completed TROPONIN Q4H Lab 09/12/23 20:20 Completed TROPONIN Q4H Lab 09/13/23 00:00 Ordered TROPONIN Q4H Lab 09/13/23 04:00 Ordered UA W/RFX UR CULTURE Stat Lab 09/12/23 20:56 Completed Medication Summary Generic Name Dose Route Start Last Admin Trade Name Freq PRN Reason Stop Dose Admin Sodium Chloride 1,000 mls @ 100 mls/hr 09/12/23 20:00 09/12/23 20:44 Sodium Chloride 0.9% 1000 Ml IV 10/12/23 19:59 100 mls/hr .Q10H LAURA Administration Discontinued Medications Generic Name Dose Route Start Last Admin Trade Name Freq PRN Reason Stop Dose Admin Droperidol 1.25 mg 09/12/23 19:52 09/12/23 20:44 Droperidol 5 Mg/2 Ml Vial IV 09/12/23 19:53 1.25 mg STAT ONE Administration Droperidol Confirm 09/12/23 20:32 Droperidol 5 Mg/2 Ml Vial Administered 09/12/23 20:33 Dose 5 mg .ROUTE [facility] [facility] Lab/Rad Data: Laboratory Result Diagrams 09/12/23 20:20 09/12/23 20:20 Laboratory Results 09/12/23 09/12/23 09/12/23 Range/Units 20:56 20:29 20:20 WBC (4.0-10.5) x10^3/uL RBC (4.1-5.4) x10^6/uL Hgb (12.0-16.0) g/dL Hct (35-47) % MCV (78-100) fL MCH (26-32) pg MCHC (32-36) g/dL RDW (11.5-14.0) % Plt Count (150-450) x10^3/uL MPV (7.5-11.0) fL Gran % (36.0-66.0) % Immature Gran % (Auto) (0.00-0.4) % Nucleat RBC Rel Count (0.00-0.1) % Eos # (Auto) (0-0.5) x10^3/uL Immature Gran # (Auto) (0.00-0.03) x10^3u/L Absolute Lymphs (auto) (1.0-4.6) x10^3/uL Absolute Monos (auto) (0.0-1.3) x10^3/uL Absolute Nucleated RBC (0.00-0.01) x10^3u/L Lymphocytes % (24.0-44.0) % Monocytes % (0.0-12.0) % Eosinophils % (0.00-5.0) % Basophils % (0.0-0.4) % Absolute Granulocytes (1.4-6.9) x10^3/uL Basophils # (0-0.4) x10^3/uL D-Dimer (0.0-0.50) mg/L Sodium (137-145) mmol/L Potassium (3.5-5.1) mmol/L Chloride (98-107) mmol/L Carbon Dioxide (22-30) mmol/L Anion Gap (5-15) MEQ/L BUN (7-17) mg/dL Creatinine (0.52-1.04) mg/dL Estimated GFR ML/MIN Glucose (74-106) mg/dL Lactic Acid 0.7 (0.4-2.0) Calcium (8.4-10.2) mg/dL Total Bilirubin (0.2-1.3) mg/dL AST (14-36) U/L ALT (0-35) U/L Alkaline Phosphatase (38-126) U/L Troponin I (0.000-0.034) ng/mL Serum Total Protein (6.3-8.2) g/dL Albumin (3.5-5.0) g/dL Urine Color Yellow (Yellow) Urine Appearance Cloudy A (Clear) Urine pH 5.5 (4.6-8.0) Ur Specific Freedom 1.020 (1.005-1.030) Urine Protein Trace A (Negative) Urine Glucose (UA) 100 A (Negative) mg/dL Urine Ketones Trace A (Negative) Urine Blood Trace (Negative) Urine Nitrite Negative (Negative) Urine Bilirubin Negative (Negative) Urine Urobilinogen 0.2 (0.2) mg/dL Ur Leukocyte Esterase Small A (Negative) U Hyaline Cast (Auto) None Seen (0-2) /LPF Urine Microscopic RBC 0-2 (0-5) /HPF Urine Microscopic WBC 3-5 (0-5) /HPF Ur Epithelial Cells Rare (None Seen) /HPF Calcium Oxalate Crystal 11-25 A (None Seen) /HPF Urine Bacteria Rare A (None Seen) /HPF Urine Culture Reflexed YES (NO) Influenza Type A Ag NEGATIVE (NEGATIVE) Influenza Type B Ag NEGATIVE (NEGATIVE) RSV (PCR) NEGATIVE (NEGATIVE) SARS-CoV-2 (PCR) NEGATIVE (NEGATIVE) 09/12/23 09/12/23 09/12/23 Range/Units 20:20 20:20 20:20 WBC (4.0-10.5) x10^3/uL RBC (4.1-5.4) x10^6/uL Hgb (12.0-16.0) g/dL Hct (35-47) % MCV (78-100) fL MCH (26-32) pg MCHC (32-36) g/dL RDW (11.5-14.0) % Plt Count (150-450) x10^3/uL MPV (7.5-11.0) fL Gran % (36.0-66.0) % Immature Gran % (Auto) (0.00-0.4) % Nucleat RBC Rel Count (0.00-0.1) % Eos # (Auto) (0-0.5) x10^3/uL Immature Gran # (Auto) (0.00-0.03) x10^3u/L Absolute Lymphs (auto) (1.0-4.6) x10^3/uL Absolute Monos (auto) (0.0-1.3) x10^3/uL Absolute Nucleated RBC (0.00-0.01) x10^3u/L Lymphocytes % (24.0-44.0) % Monocytes % (0.0-12.0) % Eosinophils % (0.00-5.0) % Basophils % (0.0-0.4) % Absolute Granulocytes (1.4-6.9) x10^3/uL Basophils # (0-0.4) x10^3/uL D-Dimer 0.31 (0.0-0.50) mg/L Sodium 141 (137-145) mmol/L Potassium 4.1 (3.5-5.1) mmol/L Chloride 108 H (98-107) mmol/L Carbon Dioxide 23 (22-30) mmol/L Anion Gap 14.8 (5-15) MEQ/L BUN 32 H (7-17) mg/dL Creatinine 1.25 H (0.52-1.04) mg/dL Estimated GFR 48.1 ML/MIN Glucose 90 (74-106) mg/dL Lactic Acid (0.4-2.0) Calcium 8.8 (8.4-10.2) mg/dL Total Bilirubin 0.40 (0.2-1.3) mg/dL AST 24 (14-36) U/L ALT 18 (0-35) U/L Alkaline Phosphatase 110 (38-126) U/L Troponin I < 0.012 (0.000-0.034) ng/mL Serum Total Protein 7.6 (6.3-8.2) g/dL Albumin 4.3 (3.5-5.0) g/dL Urine Color (Yellow) Urine Appearance (Clear) Urine pH (4.6-8.0) Ur Specific Freedom (1.005-1.030) Urine Protein (Negative) Urine Glucose (UA) (Negative) mg/dL Urine Ketones (Negative) Urine Blood (Negative) Urine Nitrite (Negative) Urine Bilirubin (Negative) Urine Urobilinogen (0.2) mg/dL Ur Leukocyte Esterase (Negative) U Hyaline Cast (Auto) (0-2) /LPF Urine Microscopic RBC (0-5) /HPF Urine Microscopic WBC (0-5) /HPF Ur Epithelial Cells (None Seen) /HPF Calcium Oxalate Crystal (None Seen) /HPF Urine Bacteria (None Seen) /HPF Urine Culture Reflexed (NO) Influenza Type A Ag (NEGATIVE) Influenza Type B Ag (NEGATIVE) RSV (PCR) (NEGATIVE) SARS-CoV-2 (PCR) (NEGATIVE) 09/12/23 Range/Units 20:20 WBC 4.1 (4.0-10.5) x10^3/uL RBC 3.77 L (4.1-5.4) x10^6/uL Hgb 11.3 L (12.0-16.0) g/dL Hct 35.7 (35-47) % MCV 94.7 (78-100) fL MCH 30.0 (26-32) pg MCHC 31.7 L (32-36) g/dL RDW 13.4 (11.5-14.0) % Plt Count 116 L (150-450) x10^3/uL MPV 11.5 H (7.5-11.0) fL Gran % 24.7 L (36.0-66.0) % Immature Gran % (Auto) 0.2 (0.00-0.4) % Nucleat RBC Rel Count 0.0 (0.00-0.1) % Eos # (Auto) 0.05 (0-0.5) x10^3/uL Immature Gran # (Auto) 0.01 (0.00-0.03) x10^3u/L Absolute Lymphs (auto) 2.79 (1.0-4.6) x10^3/uL Absolute Monos (auto) 0.26 (0.0-1.3) x10^3/uL Absolute Nucleated RBC 0.00 (0.00-0.01) x10^3u/L Lymphocytes % 67.4 H (24.0-44.0) % Monocytes % 6.3 (0.0-12.0) % Eosinophils % 1.2 (0.00-5.0) % Basophils % 0.2 (0.0-0.4) % Absolute Granulocytes 1.02 L (1.4-6.9) x10^3/uL Basophils # 0.01 (0-0.4) x10^3/uL D-Dimer (0.0-0.50) mg/L Sodium (137-145) mmol/L Potassium (3.5-5.1) mmol/L Chloride (98-107) mmol/L Carbon Dioxide (22-30) mmol/L Anion Gap (5-15) MEQ/L BUN (7-17) mg/dL Creatinine (0.52-1.04) mg/dL Estimated GFR ML/MIN Glucose (74-106) mg/dL Lactic Acid (0.4-2.0) Calcium (8.4-10.2) mg/dL Total Bilirubin (0.2-1.3) mg/dL AST (14-36) U/L ALT (0-35) U/L Alkaline Phosphatase (38-126) U/L Troponin I (0.000-0.034) ng/mL Serum Total Protein (6.3-8.2) g/dL Albumin (3.5-5.0) g/dL Urine Color (Yellow) Urine Appearance (Clear) Urine pH (4.6-8.0) Ur Specific [place] (1.005-1.030) Urine Protein (Negative) Urine Glucose (UA) (Negative) mg/dL Urine Ketones (Negative) Urine Blood (Negative) Urine Nitrite (Negative) Urine Bilirubin (Negative) Urine Urobilinogen (0.2) mg/dL Ur Leukocyte Esterase (Negative) U Hyaline Cast (Auto) (0-2) /LPF Urine Microscopic RBC (0-5) /HPF Urine Microscopic WBC (0-5) /HPF Ur Epithelial Cells (None Seen) /HPF Calcium Oxalate Crystal (None Seen) /HPF Urine Bacteria (None Seen) /HPF Urine Culture Reflexed (NO) Influenza Type A Ag (NEGATIVE) Influenza Type B Ag (NEGATIVE) RSV (PCR) (NEGATIVE) SARS-CoV-2 (PCR) (NEGATIVE) - Progress Progress: improved Medical Desision Making - Independent Historian Additional History obtained from: Spouse - Diagnostic Testing Diagnostic test were ordered, analyzed, and reviewed by me: Yes Radiological Interpretation: Reviewed by me - Risk of complications Low Risk: Low risk of morbidity from additional dx testing or treatment - Departure Departure Disposition: Home Clinical Impression: Dehydration Condition: Stable Critical Care Time: No Referrals: ESEQUIEL MTZ MD [Primary Care Provider] - Follow up/PCP as directed Instructions: Dehydration, Adult (DC)
[2023-09-12 23:06] VITALS: BP 165/67; PULSE 85; O2SAT 98
--- NOTE | 2023-09-13 08:31 | XRAY ---
Indication: Vertigo. Multiple contiguous axial images obtained through the head without contrast. Comparison: August 16, 2014 Normal appearing brain parenchyma, ventricles, and bony calvarium for patient's age. Visualized paranasal sinuses and mastoid air cells are clear. Impression: Continued normal CT head without contrast exam.
--- NOTE | 2023-09-13 08:31 | XRAY ---
Indication: Vertigo. Comparison: June 21, 2021 Portable chest again demonstrates normal heart and lungs. Bony thorax intact with mild degenerative changes. No new/acute findings.
== END 2023-09-12 23:06 | disposition home or self-care (01) ==
LOC: ED 19:50
DX: E86.0 Dehydration (principal); R42 Dizziness and giddiness; H53.2 Diplopia; E11.42 Type 2 diabetes mellitus with diabetic polyneuropathy; Z79.85 Long-term (current) use of injectable non-insulin antidiabetic drugs; Z79.899 Other long term (current) drug therapy
CPT/HCPCS: 0241U; 36000; 36415; 70450; 71045; 80053; 81001; 83605; 84484; 85025; 85379; 87086; 93005; 96374; 99284

== ENCOUNTER 2024-10-15 16:49 | Emergency (ER) | payer BC, MEDICARE ==
[2024-10-15 17:38] VITALS: TEMP 97.2
[2024-10-15 18:10] LABS: Group A Strep NOT DETECTED (NEGATIVE)
[2024-10-15 18:19] LABS: Absolute Neutrophil Ct (ANC) 1.14 x10^3/uL (1.56-6.13); BASOPHIL % 0.3 % (0.1-1.2); Basophil (Absolute #) 0.01 x10^3/uL (0.01-0.08); Eosinophil % 1.1 % (0.7-5.8); Eosinophil (Absolute #) 0.04 x10^3/uL (0.04-0.36); Hematocrit 34.8 % (34.1-44.9); Hemoglobin 11.3 g/dL (11.2-15.7); IMMATURE GRAN # 0.01 x10^3u/L (0.001-0.031); IMMATURE GRAN % 0.3 % (0.001-0.429); Lymphocyte (Absolute #) 2.19 x10^3/uL (1.18-3.74); Lymphocytes % 59.8 % (19.3-51.7); Mean Cell Volume 90.9 fL (79.4-94.8); Mean Corpuscular Hemoglobin 29.5 pg (25.6-32.2); Mean Corpuscular Hgb Concent. 32.5 g/dL (32.2-35.5); Mean Platelet Volume 11.3 fL (9.4-12.3); Monocyte (Absolute #) 0.27 x10^3/uL (0.24-0.86); Monocytes % 7.4 % (4.7-12.5); Neutrophil % 31.1 % (34.0-71.1); Platelet Count 92 x10^3/uL (182-369); Red Blood Count 3.83 x10^6/uL (3.93-5.22); Red Cell Distribution Width 14.4 % (11.7-14.4); White Blood Count 3.7 x10^3/uL (3.98-10.04)
[2024-10-15 18:23] LABS: INFLUENZA A NEGATIVE (NEGATIVE); INFLUENZA B NEGATIVE (NEGATIVE); RESPIRATORY SYNCTIAL VIRUS NEGATIVE (NEGATIVE); SARS-CoV-2 Xpert Express NEGATIVE (NEGATIVE)
--- NOTE | 2024-10-15 18:36 | ERPHSYRPT ---
- History of Present Illness Time Seen by Provider: 10/15/24 17:03 Source: patient Exam Limitations: no limitations Patient Subjective Stated Complaint: C/O fatigue, body aches, sorethroat for 3 days Triage Nursing Assessment: Patient ambulated back to ER without difficulties. She is alert and oriented. No SOB. No cough. Skin tone normal. HURD WNL. Protruding areas noted to abdomen; patient states these are hernias. Physician History: 64-year-old female with history of bariatric surgeries, hypothyroidism presented in the ER with complains of generalized weakness fatigue tiredness and feeling sleepy all the time. Patient reports she feels sleepy even driving and cannot concentrate. This has been going on for the last 2 to 3 days and also report associated mild cough congestion and pressure in the ears. Patient was recently treated with Z-Guillermo for bronchitis. Patient denies any fever or chills. No chest pain palpitations or shortness of breath. Uses inhaler as needed. Patient denies any abdominal pain nausea or vomiting. No known sick contact. Allergies/Adverse Reactions: levofloxacin [From Levaquin] Allergy (Severe, Verified 10/15/24 17:28) itch morphine Allergy (Severe, Verified 10/15/24 17:28) Itching nalbuphine HCl [From Nubain] Allergy (Severe, Verified 10/15/24 17:28) Itching piperacillin [From Zosyn] Allergy (Intermediate, Verified 10/15/24 17:28) Hives tazobactam [From Zosyn] Allergy (Intermediate, Verified 10/15/24 17:28) Hives metformin Allergy (Verified 10/15/24 17:28) Home Medications: Ergocalciferol (Vitamin D2) [Vitamin D] 50,000 unit PO UD 02/09/19 [History] Mirabegron [Myrbetriq] 50 mg PO DAILY 02/09/19 [History] Oxycodone HCl [Oxycontin] 10 mg PO Q6HPRN PRN 02/09/19 [History] Ascorbic Acid 500 mg [Vitamin C 500 MG] 500 mg PO DAILY 05/16/21 [History] Buprenorphine HCl [Belbuca] 750 mcg BC BID 05/16/21 [History] Escitalopram Oxalate [Lexapro] 20 mg PO DAILY 05/16/21 [History] Loperamide HCl 2 mg [Imodium 2 mg] 2 mg PO TID PRN PRN 05/16/21 [History] Pramipexole Di-HCl [Pramipexole ER] 1 mg PO HS 05/16/21 [History] Albuterol Sulfate [Albuterol Sulfate Hfa] 8.5 gm IH Q4H PRN PRN 09/12/23 [His tory] Buspirone HCl 5 mg [Buspar 5 mg] 1 tab PO TID PRN PRN 09/12/23 [History] Calcium Cit/Mgox/Vit D3/B6/Min [Calcium Citrate Plus Tablet] 1 each PO BID 09/12/23 [History] Cyanocobalamin 1000 Mcg/ml [Cyanocobalamin B-12 1000 MCG/ML] 1 ml SQ WEEKLY 09/12/23 [History] Estradiol [Estrace] 2 tab PO DAILY 09/12/23 [History] Eszopiclone [Lunesta] 2 mg PO HS 09/12/23 [History] Fexofenadine HCl 180 mg PO DAILY 09/12/23 [History] Gabapentin Enacarbil [Horizant] 300 mg PO UD 09/12/23 [History] Levothyroxine Sodium 100 Mcg [Synthroid 100 Mcg] 200 mcg PO DAILY 09/12/23 [History] Midodrine HCl 2.5 mg PO TID 09/12/23 [History] Montelukast Sodium 10 mg [Singulair 10 MG] 1 tab PO DAILY 09/12/23 [History] Multivitamin/Iron/Folic Acid [Centrum Women Tablet] 1 tab PO DAILY 09/12/23 [History] Olopatadine HCl [[place]aday Twice Daily Relief] 2 drops BID 09/12/23 [History] Propylene Glycol/Peg 400/Pf [Systane Ultra 0.4-0.3% Eye Drp] 1 drop QID 09/12/23 [History] Rifaximin [Xifaxan] 550 mg PO BID 09/12/23 [History] Semaglutide [Ozempic] 8 mg SQ WEEKLY 09/12/23 [History] Solifenacin Succinate 10 mg PO DAILY 09/12/23 [History] Sucralfate 1 gm [Carafate 1 GM] 1 tablet PO DAILY 09/12/23 [History] Tizanidine HCl 4 mg [Zanaflex 4 MG] 1 tab PO HS 09/12/23 [History] Tolterodine Tartrate [Tolterodine Tartrate ER] 2 mg PO HS 09/12/23 [History] Zinc Amino Acid Chelate [Zinc] 50 mg PO DAILY 09/12/23 [History] Hx Tetanus, Diphtheria Vaccination/Date Given: Yes Hx Influenza Vaccination/Date Given: Yes Hx Pneumococcal Vaccination/Date Given: Yes Immunizations Up to Date: Yes Travel Risk - International Travel Have you traveled outside of the country in past 3 weeks: No - Emerging Infectious Disease Are you exhibiting symptoms associated with any current EIDs: Yes Symptoms: Cough: New Onset, Headaches/Body Aches/, Other (Please Comment) Comment: sorethroat, fatigue - Review of Systems Constitutional: Fatigue, Weakness Eyes: No Symptoms Ears, Nose, & Throat: Nose Congestion, Throat Pain Respiratory: Cough Cardiac: No Symptoms Abdominal/Gastrointestinal: No Symptoms Genitourinary Symptoms: No Symptoms Musculoskeletal: Myalgias Skin: No Symptoms Neurological: No Symptoms Hematologic/Lymphatic: No Symptoms - Past Medical History Pertinent Past Medical History: Yes Neurological History: Peripheral Neuropathy ENT History: Glaucoma Cardiac History: No Pertinent History Respiratory History: No Pertinent History Endocrine Medical History: Adrenal Insufficiency, Diabetes Type II, Other Musculoskeletal History: Osteoarthritis GI Medical History: GERD, Gallbladder Disease History: Other Psycho-Social History: Anxiety Female Reproductive Disorders: Menstrual Problems Other Medical History: PT NOTES SHE WAS IN THE HOSPITAL FOR 100+ DUE TO FOOD RETENTION, SHE NOTES PUSHING THE FOOD THROUGH DAMAGED HER GASTRIC BYPASS. SHE HAD TO HAVE ADDITIONAL SURGERIES. SHE RECENTLY FINISHED WOUND CARE. SHE HAD A WOUND VAC IN THE HOSPTIAL. SHE NOTES WOUND IS ALL HEALED . SHE HAS HAD PARTIAL LIVER REMOVAL. PT HAS HAD HER STOMACH REMOVED. recurrent urinary tract infections - Past Surgical History Past Surgical History: Yes Neuro Surgical History: No Pertinent History Cardiac: No Pertinent History Respiratory: No Pertinent History Gastrointestinal: Cholecystectomy, Other Genitourinary: No Pertinent History Musculoskeletal: Joint Replacement, Orthopedic Surgery Female Surgical History: Hysterectomy Other Surgical History: lt fx ankle repair,carpel tunnel, d&c, gastric bypass, tummy tuck, bilateral knees replaceed, left elbow. glaucoma surgery on both eyes. 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 Significant Family History: heart disease, diabetes, hypertension - Social History Smoking Status: Never smoker Exposure to second hand smoke: No Alcohol Use: None Drug Use: none Patient Lives Alone: No - Social Determinants of Health Will the patient participate in the screening: Yes Do you worry about a steady place to live?: No Do you have any problems with any of the following?: No known problems In the past 12 months,have you had to go without utilities?: No Transportation Issues: No Has anyone in your support network made you feel unsafe?: No Have you or anyone in your house had to go without enough: No - Nursing Vital Signs Nursing Vital Signs: Initial Vital Signs Temperature 97.2 F 10/15/24 17:28 Pulse Rate 67 10/15/24 17:28 Respiratory Rate 18 10/15/24 17:28 O2 Sat by Pulse Oximetry 98 10/15/24 17:28 Pain Scale Pain Intensity 5 - Physical Exam General Appearance: no apparent distress, alert Eye Exam: PERRL/EOMI Ears, Nose, Throat Exam: normal ENT inspection, moist mucous membranes, pharyngeal erythema Neck Exam: normal inspection, non-tender, supple, full range of motion Respiratory Exam: normal breath sounds, lungs clear Cardiovascular Exam: regular rate/rhythm, normal heart sounds Gastrointestinal/Abdomen Exam: soft, normal bowel sounds, No tenderness Extremity Exam: normal inspection Neurologic Exam: alert, oriented x 3, cooperative, clinical admissions manager II-XII nml as tested, nml cerebellar function, nml station & gait, sensation nml, No normal mood/affect, No motor deficits Skin Exam: normal color SpO2 Interpretation: normal SpO2: 96 O2 Delivery: Room Air Ordered Tests: Active Orders 24 hr Category Date Time Status CHEST 1 VIEW (PORTABLE) Stat Exams 10/15/24 17:52 Taken CBC W DIFF Stat Lab 10/15/24 18:10 Completed CMP Stat Lab 10/15/24 18:10 Completed Lactic Acid Stat Lab 10/15/24 18:40 Completed MAGNESIUM Stat Lab 10/15/24 18:10 Completed TROPONIN Q4H Lab 10/15/24 18:10 Completed TROPONIN Q4H Lab 10/15/24 22:00 Ordered TROPONIN Q4H Lab 10/16/24 02:00 Ordered TSH [TSH, 3RD Generation] Stat Lab 10/15/24 18:10 Completed UA W/RFX UR CULTURE Stat Lab 10/15/24 18:42 Completed Lab/Rad Data: Laboratory Result Diagrams 10/15/24 18:10 10/15/24 18:10 Laboratory Results 10/15/24 10/15/24 10/15/24 Range/Units 18:42 18:40 18:10 WBC (3.98-10.04) x10^3/uL RBC (3.93-5.22) x10^6/uL Hgb (11.2-15.7) g/dL Hct (34.1-44.9) % MCV (79.4-94.8) fL MCH (25.6-32.2) pg MCHC (32.2-35.5) g/dL RDW (11.7-14.4) % Plt Count (182-369) x10^3/uL MPV (9.4-12.3) fL Gran % (34.0-71.1) % Immature Gran % (Auto) (0.001-0.429) % Nucleat RBC Rel Count (0.00-0.2) % Eos # (Auto) (0.04-0.36) x10^3/uL Immature Gran # (Auto) (0.001-0.031) x10^3u/L Absolute Lymphs (auto) (1.18-3.74) x10^3/uL Absolute Monos (auto) (0.24-0.86) x10^3/uL Absolute Nucleated RBC (0.00-0.012) x10^3u/L Lymphocytes % (19.3-51.7) % Monocytes % (4.7-12.5) % Eosinophils % (0.7-5.8) % Basophils % (0.1-1.2) % Absolute Granulocytes (1.56-6.13) x10^3/uL Basophils # (0.01-0.08) x10^3/uL Sodium (135-145) mmol/L Potassium (3.5-5.1) mmol/L Chloride (98-107) mmol/L Carbon Dioxide (22-30) mmol/L Anion Gap (5-15) MEQ/L BUN (7-17) mg/dL Creatinine (0.52-1.04) mg/dL Estimated GFR ML/MIN Glucose (74-106) mg/dL Lactic Acid 0.6 (0.4-2.0) Calcium (8.4-10.2) mg/dL Magnesium (1.6-2.3) mg/dL Total Bilirubin (0.2-1.3) mg/dL AST (14-36) U/L ALT (0-35) U/L Alkaline Phosphatase (38-126) U/L Troponin I (0.000-0.033) ng/mL Serum Total Protein (6.3-8.2) g/dL Albumin (3.5-5.0) g/dL TSH 3rd Generation 0.765 (0.470-4.680) mIU/L Urine Color Yellow (Yellow) Urine Appearance Clear (Clear) Urine pH 5.0 (4.6-8.0) Ur Specific [place] 1.015 (1.005-1.030) Urine Protein Negative (Negative) Urine Glucose (UA) Negative (Negative) mg/dL Urine Ketones Negative (Negative) Urine Blood Negative (Negative) Urine Nitrite Negative (Negative) Urine Bilirubin Negative (Negative) Urine Urobilinogen 0.2 (0.2) mg/dL Ur Leukocyte Esterase Negative (Negative) U Hyaline Cast (Auto) NONE SEEN (0-2) /LPF Urine Microscopic RBC 0-2 (0-5) /HPF Urine Microscopic WBC 0-2 (0-5) /HPF Ur Epithelial Cells None Seen (None Seen) /HPF Urine Bacteria None Seen (None Seen) /HPF Urine Culture Reflexed NO (NO) Influenza Type A Ag (NEGATIVE) Influenza Type B Ag (NEGATIVE) RSV (PCR) (NEGATIVE) SARS-CoV-2 (PCR) (NEGATIVE) Group A Strep Antibody (NEGATIVE) 10/15/24 10/15/24 10/15/24 Range/Units 18:10 18:10 18:10 WBC 3.7 L (3.98-10.04) x10^3/uL RBC 3.83 L (3.93-5.22) x10^6/uL Hgb 11.3 (11.2-15.7) g/dL Hct 34.8 (34.1-44.9) % MCV 90.9 (79.4-94.8) fL MCH 29.5 (25.6-32.2) pg MCHC 32.5 (32.2-35.5) g/dL RDW 14.4 (11.7-14.4) % Plt Count 92 L (182-369) x10^3/uL MPV 11.3 (9.4-12.3) fL Gran % 31.1 L (34.0-71.1) % Immature Gran % (Auto) 0.3 (0.001-0.429) % Nucleat RBC Rel Count 0.0 (0.00-0.2) % Eos # (Auto) 0.04 (0.04-0.36) x10^3/uL Immature Gran # (Auto) 0.01 (0.001-0.031) x10^3u/L Absolute Lymphs (auto) 2.19 (1.18-3.74) x10^3/uL Absolute Monos (auto) 0.27 (0.24-0.86) x10^3/uL Absolute Nucleated RBC 0.00 (0.00-0.012) x10^3u/L Lymphocytes % 59.8 H (19.3-51.7) % Monocytes % 7.4 (4.7-12.5) % Eosinophils % 1.1 (0.7-5.8) % Basophils % 0.3 (0.1-1.2) % Absolute Granulocytes 1.14 L (1.56-6.13) x10^3/uL Basophils # 0.01 (0.01-0.08) x10^3/uL Sodium 140 (135-145) mmol/L Potassium 4.2 (3.5-5.1) mmol/L Chloride 112 H (98-107) mmol/L Carbon Dioxide 23 (22-30) mmol/L Anion Gap 10.0 (5-15) MEQ/L BUN 23 H (7-17) mg/dL Creatinine 0.75 (0.52-1.04) mg/dL Estimated GFR 88.3 ML/MIN Glucose 125 H (74-106) mg/dL Lactic Acid (0.4-2.0) Calcium 8.9 (8.4-10.2) mg/dL Magnesium 1.9 (1.6-2.3) mg/dL Total Bilirubin 0.40 (0.2-1.3) mg/dL AST 28 (14-36) U/L ALT 22 (0-35) U/L Alkaline Phosphatase 69 (38-126) U/L Troponin I < 0.012 (0.000-0.033) ng/mL Serum Total Protein 6.7 (6.3-8.2) g/dL Albumin 3.8 (3.5-5.0) g/dL TSH 3rd Generation (0.470-4.680) mIU/L Urine Color (Yellow) Urine Appearance (Clear) Urine pH (4.6-8.0) Ur Specific [place] (1.005-1.030) Urine Protein (Negative) Urine Glucose (UA) (Negative) mg/dL Urine Ketones (Negative) Urine Blood (Negative) Urine Nitrite (Negative) Urine Bilirubin (Negative) Urine Urobilinogen (0.2) mg/dL Ur Leukocyte Esterase (Negative) U Hyaline Cast (Auto) (0-2) /LPF Urine Microscopic RBC (0-5) /HPF Urine Microscopic WBC (0-5) /HPF Ur Epithelial Cells (None Seen) /HPF Urine Bacteria (None Seen) /HPF Urine Culture Reflexed (NO) Influenza Type A Ag (NEGATIVE) Influenza Type B Ag (NEGATIVE) RSV (PCR) (NEGATIVE) SARS-CoV-2 (PCR) (NEGATIVE) Group A Strep Antibody (NEGATIVE) 10/15/24 Range/Units 17:39 WBC (3.98-10.04) x10^3/uL RBC (3.93-5.22) x10^6/uL Hgb (11.2-15.7) g/dL Hct (34.1-44.9) % MCV (79.4-94.8) fL MCH (25.6-32.2) pg MCHC (32.2-35.5) g/dL RDW (11.7-14.4) % Plt Count (182-369) x10^3/uL MPV (9.4-12.3) fL Gran % (34.0-71.1) % Immature Gran % (Auto) (0.001-0.429) % Nucleat RBC Rel Count (0.00-0.2) % Eos # (Auto) (0.04-0.36) x10^3/uL Immature Gran # (Auto) (0.001-0.031) x10^3u/L Absolute Lymphs (auto) (1.18-3.74) x10^3/uL Absolute Monos (auto) (0.24-0.86) x10^3/uL Absolute Nucleated RBC (0.00-0.012) x10^3u/L Lymphocytes % (19.3-51.7) % Monocytes % (4.7-12.5) % Eosinophils % (0.7-5.8) % Basophils % (0.1-1.2) % Absolute Granulocytes (1.56-6.13) x10^3/uL Basophils # (0.01-0.08) x10^3/uL Sodium (135-145) mmol/L Potassium (3.5-5.1) mmol/L Chloride (98-107) mmol/L Carbon Dioxide (22-30) mmol/L Anion Gap (5-15) MEQ/L BUN (7-17) mg/dL Creatinine (0.52-1.04) mg/dL Estimated GFR ML/MIN Glucose (74-106) mg/dL Lactic Acid (0.4-2.0) Calcium (8.4-10.2) mg/dL Magnesium (1.6-2.3) mg/dL Total Bilirubin (0.2-1.3) mg/dL AST (14-36) U/L ALT (0-35) U/L Alkaline Phosphatase (38-126) U/L Troponin I (0.000-0.033) ng/mL Serum Total Protein (6.3-8.2) g/dL Albumin (3.5-5.0) g/dL TSH 3rd Generation (0.470-4.680) mIU/L Urine Color (Yellow) Urine Appearance (Clear) Urine pH (4.6-8.0) Ur Specific [place] (1.005-1.030) Urine Protein (Negative) Urine Glucose (UA) (Negative) mg/dL Urine Ketones (Negative) Urine Blood (Negative) Urine Nitrite (Negative) Urine Bilirubin (Negative) Urine Urobilinogen (0.2) mg/dL Ur Leukocyte Esterase (Negative) U Hyaline Cast (Auto) (0-2) /LPF Urine Microscopic RBC (0-5) /HPF Urine Microscopic WBC (0-5) /HPF Ur Epithelial Cells (None Seen) /HPF Urine Bacteria (None Seen) /HPF Urine Culture Reflexed (NO) Influenza Type A Ag NEGATIVE (NEGATIVE) Influenza Type B Ag NEGATIVE (NEGATIVE) RSV (PCR) NEGATIVE (NEGATIVE) SARS-CoV-2 (PCR) NEGATIVE (NEGATIVE) Group A Strep Antibody NOT DETECTED (NEGATIVE) - Progress Progress: unchanged Air Movement: good Progress Note: 10/15/24 20:36 64-year-old is evaluated in the ER for generalized weakness with cough congestion, body aches, URI symptoms. Patient is not in any distress. Lungs clear to auscultation. Chest x-ray negative for any acute cardiopulmonary findings reviewed by me, official report is pending. White count of 3.7, chemistries fairly unremarkable, no UTI. Has negative COVID flu RSV and strep. Patient has recently finished course of Z-Guillermo. I believe patient has viral etiology symptoms and recommended supportive care. Do not think needs any other workup and is stable for discharge. Discussed signs symptoms of worsening needing return to ER which she seems understanding. Blood Culture(s) Obtained: No Antibiotics given: No Counseled pt/family regarding: lab results, diagnosis, need for follow-up, rad results Medical Desision Making - Diagnostic Testing Diagnostic test were ordered, analyzed, and reviewed by me: Yes Radiological Interpretation: Interpreted by me, Reviewed by me - Departure Departure Disposition: Home Clinical Impression: Viral syndrome, Generalized weakness Condition: Stable Critical Care Time: No Referrals: ESEQUIEL MTZ MD [Primary Care Provider] - Follow up with PCP 1 day Instructions: Upper respiratory infection in adults - Discharge instructions Additional Instructions: Take Tylenol as needed. Drink plenty of fluids. Use inhaler as recommended. Follow-up with primary care for reevaluation. Return to ER for any worsening.
[2024-10-15 18:43] LABS: ALBUMIN 3.8 g/dL (3.5-5.0); BILIRUBIN,TOTAL 0.4 mg/dL (0.2-1.3); Calcium 8.9 mg/dL (8.4-10.2); Creatinine 1 0.75 mg/dL (0.52-1.04); EST GLOMERULAR FILTRATION RATE 88.3 ML/MIN; MAGNESIUM 1.9 mg/dL (1.6-2.3); Potassium 4.2 mmol/L (3.5-5.1); Total Protein 6.7 g/dL (6.3-8.2)
[2024-10-15 18:50] LABS: Appearance Clear (Clear); Bacteria None Seen /HPF (None Seen); Bilirubin Negative (Negative); Blood Negative (Negative); Epithelial Cells None Seen /HPF (None Seen); Glucose, Urine Negative (Negative); Hyaline Casts NONE SEEN /LPF (0-2); Ketones Negative (Negative); Leukocyte Esterase Negative (Negative); Nitrite Negative (Negative); Protein,Urine Dip Negative (Negative); RBC 0-2 /HPF (0-5); Specific Gravity 1.015 (1.005-1.030); Urobilinogen 0.2 mg/dL (0.2); WBC 0-2 /HPF (0-5)
[2024-10-15 20:11] VITALS: BP 128/65; PULSE 64; RESP 14; O2SAT 96
--- NOTE | 2024-10-16 09:29 | XRAY ---
Indication: Cough. Comparison: September 12, 2023 Portable chest again demonstrates normal heart and lungs. Bony thorax intact with mild degenerative changes. No new/acute findings.
== END 2024-10-15 20:52 | disposition home or self-care (01) ==
LOC: ED 16:49
DX: B34.9 Viral infection, unspecified (principal); R53.1 Weakness; J02.9 Acute pharyngitis, unspecified; Z79.899 Other long term (current) drug therapy
CPT/HCPCS: 0241U; 36415; 71045; 80053; 81001; 83605; 83735; 84443; 84484; 85025; 87651; 99284; 99283